=== PATIENT | male | born 1940 | race Caucasian/White ===

== ENCOUNTER 2019-02-22 08:30 | Day surgery (SDC) | payer OTHER ==
[~2019-02-22 08:30] MED LIST: Acetaminophen TAB* 325 MG PO PRN; Buffered Lidocaine 1% SYRIN* 1 ML/SYRINGE INTRADERM ONE
[2019-02-22] MEDS ORDERED: fentaNYL* 50 MCG/ML 2 ML VIAL (100 MCG VIAL) ONE (08:40)
[2019-02-22] MEDS ORDERED: Midazolam* 1 MG/ML 2 ML VIAL (2 MG) ONE (08:40)
[2019-02-22] MEDS ORDERED: Povidone Iodine 5% OPTH* 30 ML BTL ONE (10:57)
[2019-02-22] MEDS ORDERED: Ketorolac 0.5% OPHTH (NF) 0.5 % 5 ML BTL ONE (10:57)
[2019-02-22] MEDS ORDERED: Lidocaine 2% EPI 1:200000 MPF*10-20 ML VIAL ONE (10:57)
[2019-02-22] MEDS ORDERED: Cyclopentolate 1% OPTH.SOL* 2 ML BTL ONE (10:57)
[2019-02-22] MEDS ORDERED: Neomycin/Polymy/Dex OPTH.SUSP* MAXITROL 0.1% 5 ML ONE (10:57)
[2019-02-22] MEDS ORDERED: acetaZOLAMIDE TAB* 250 MG ONE (10:57)
[2019-02-22] MEDS ORDERED: Phenylephrine OPHTH SOL 2.5%* 2 ML ONE (10:57)
[2019-02-22] MEDS ORDERED: Lidocaine 1%* 5 ML VIAL ONE (10:57)
[2019-02-22] MEDS ORDERED: Proparacaine 0.5% OPHTH.SOL* 15 ML BTL ONE (10:57)
[2019-02-22 13:35] VITALS: BP 105/45
--- NOTE | 2019-02-22 13:39 | OP ---
OPERATIVE NOTE: DATE OF OPERATION: 02/22/19. DATE OF : 44 SURGEON: Tyrese Luna M.D. PREOPERATIVE DIAGNOSIS: Cataract, right eye. POSTOPERATIVE DIAGNOSIS: Cataract, right eye. OPERATIVE PROCEDURE: Extracapsular cataract extraction with intraocular lens implant, right eye. PROCEDURE: The patient was brought to the operating room after being given 1/2% Alcaine with epineph rine drops in the preoperative area. The eye was prepped and draped in the usual sterile fashion. S terile drape and eyelid speculum were placed. Again, topical 1/2% Alcaine with epinephrine was given . A paracentesis incision was made at the 9 o'clock position with the No.75 blade. Clear cornea inc ision 2.2 x 2.2-mm was created at the 12 o'clock position starting at the anterior limbus using the 2 .2-mm keratome. The anterior chamber was irrigated with 0.4 mL of 1% non-preservative intracameral l idocaine and filled with DisCoVisc. A capsulorrhexis was completed using the cystotome and the Utrat a forceps. Hydrodissection was performed with balanced salt solution. The lens nucleus was removed w ith the Phacoemulsification handpiece without incident. Cortex was removed with the irrigation-aspir ation handpiece. The capsular bag was re-inflated using DisCoVisc and an SN60WF 18.5 implant was ins erted with the shooter. The irrigation-aspiration handpiece was used to remove all residual DisCoVis c. The eye was refilled with balanced salt solution and the wound checked and found to be watertight . Topical Maxitrol drops were given. [id number]/[facility] #: [id number]
== END 2019-02-22 10:45 | disposition home or self-care (01) ==
LOC: OREAST 08:30
PROVIDERS: ATTEND Specialist
DX: H25.11 Age-related nuclear cataract, right eye (principal); H43.813 Vitreous degeneration, bilateral; I48.91 Unspecified atrial fibrillation; Z79.01 Long term (current) use of anticoagulants; Z86.711 Personal history of pulmonary embolism
CPT/HCPCS: A9270-GY; J2250; J3010; V2632

== ENCOUNTER 2019-03-01 07:13 | Day surgery (SDC) | payer OTHER ==
[2019-03-01] MEDS ORDERED: fentaNYL* 50 MCG/ML 2 ML VIAL (100 MCG VIAL) ONE (08:44)
[2019-03-01] MEDS ORDERED: Midazolam* 1 MG/ML 2 ML VIAL (2 MG) ONE (08:44)
[2019-03-01 09:56] VITALS: BP 106/49
[2019-03-01] MEDS ORDERED: acetaZOLAMIDE TAB* 250 MG ONE (10:12)
[2019-03-01] MEDS ORDERED: Neomycin/Polymy/Dex OPTH.SUSP* MAXITROL 0.1% 5 ML ONE (10:13)
[2019-03-01] MEDS ORDERED: Povidone Iodine 5% OPTH* 30 ML BTL ONE (10:13)
[2019-03-01] MEDS ORDERED: Ketorolac 0.5% OPHTH (NF) 0.5 % 5 ML BTL ONE (10:13)
[2019-03-01] MEDS ORDERED: Cyclopentolate 1% OPTH.SOL* 2 ML BTL ONE (10:13)
[2019-03-01] MEDS ORDERED: Lidocaine 1%* 5 ML VIAL ONE (10:13)
[2019-03-01] MEDS ORDERED: Phenylephrine OPHTH SOL 2.5%* 2 ML ONE (10:13)
[2019-03-01] MEDS ORDERED: Lidocaine 2% EPI 1:200000 MPF*10-20 ML VIAL ONE (10:13)
[2019-03-01] MEDS ORDERED: Proparacaine 0.5% OPHTH.SOL* 15 ML BTL ONE (10:13)
--- NOTE | 2019-03-01 12:39 | OP ---
OPERATIVE NOTE: DATE OF OPERATION: 03/01/19 DATE OF : 44 SURGEON: Tyrese Luna M.D. PREOPERATIVE DIAGNOSIS: Cataract, left eye. POSTOPERATIVE DIAGNOSIS: Cataract, left eye. OPERATIVE PROCEDURE: Extracapsular cataract extraction with intraocular lens implant, left eye. PROCEDURE: The patient was brought to the operating room after being given 1/2% Alcaine with epineph rine drops in the preoperative area. The eye was prepped and draped in the usual sterile fashion. S terile drape and eyelid speculum were placed. Again, topical 1/2% Alcaine with epinephrine was given . A paracentesis incision was made at the 3 o'clock position with the No.75 blade. Clear cornea inc ision 2.2 x 2.2-mm was created at the 6 o'clock position starting at the anterior limbus using the 2. 2-mm keratome. The anterior chamber was irrigated with 0.4 mL of 1% non-preservative intracameral li docaine and filled with DisCoVisc. A capsulorrhexis was completed using the cystotome and the Utrata forceps. Hydrodissection was performed with balanced salt solution. The lens nucleus was removed wi th the Phacoemulsification handpiece without incident. Cortex was removed with the irrigation-aspira tion handpiece. The capsular bag was re-inflated using DisCoVisc and an SN60WF 18.5 implant was inse rted with the shooter. The irrigation-aspiration handpiece was used to remove all residual DisCoVisc . The eye was refilled with balanced salt solution and the wound checked and found to be watertight. Topical Maxitrol drops were given. [id number]/[facility] #: [id number]
== END 2019-03-01 10:07 | disposition home or self-care (01) ==
LOC: OREAST 07:13
PROVIDERS: ATTEND Specialist
DX: H25.12 Age-related nuclear cataract, left eye (principal); H43.813 Vitreous degeneration, bilateral; I48.91 Unspecified atrial fibrillation; Z79.01 Long term (current) use of anticoagulants; Z86.711 Personal history of pulmonary embolism
CPT/HCPCS: A9270-GY; J2250; J3010; V2632

== ENCOUNTER 2019-04-13 18:23 | Emergency (ER) | payer OTHER ==
--- OUTSIDE RECORDS SUMMARY | 2019-04-13 18:29 | XMS REPORT | Continuity of Care Document ---
:1940 External Reference #:[id number] Author Name Nieves Ann Care Team Providers Name Role Phone Loren Bruce MD Primary Care Physician Unavailable Payers Date Identification Numbers Payment Provider Subscriber Policy Number: [id number] [employer] Sintia Leung Group Number: [id number] [address] PayID: [id number] [place] [address] Expires: 2017 Policy Number: [id number] [employer] Sintia Leung PayID: [id number] [address] [place] [address] Problems Active Problems Provider Date Atrial fibrillation Loren Bruce M.D. Onset: 07/29/2016 Pure hypercholesterolemia Maxx Benjamin M.D. Onset: 05/27/2011 Benign localized hyperplasia of prostate Maxx Benjamin M.D. Onset: 2010 Disorder of eye Sven Parisi M.D. Onset: 05/10/2013 Family History Date Family Member(s) Observation Comments General Cancer : (age 66 Father due to Heart alcohol problem Years) Disease Mother due to Natural () - age Causes 83 Siblings 4 First Brother Heart Disease OR in his 70s First Brother due to Unknown () - in his 80s Causes Second Brother Alive And Well : (age 77 First Sister due to Breast Years) Cancer Onset: (age 70 First Sister OR Years) Second Sister due to Cancer () Social History Type Date Description Comments Sex Unknown Marital Status 2 daughters Lives With Occupation [employer]- [employer] Cigarette Use Quit - Age 29 ETOH Use Consumes 1 beer per day Tobacco Use Start: Unknown End: Patient is a former smoker Unknown Recreational Drug Use Denies Drug Use Smoking Status Reviewed: 04/10/19 Patient is a former smoker Exercise Type/Frequency Exercises regularly Allergies, Adverse Reactions, Alerts Description No Known Drug Allergies Medications Active Medications SIG Qnty Indications Ordering Provider Date Metoprolol Succinate 1 by mouth 180tabs I48.0 Ezekiel Ramon, 05/03/2017 ER every day DO FACC 50mg Tablets ER 24HR Xarelto 1 by mouth 180tabs I48.0 Ezekiel Ramon, 05/03/2017 20mg Tablets every day DO FACC History Medications Voltaren apply to affected 200gm Dylan Corey, 10/13/2018 - 1% Gel area up to three M.D. 02/17/2019 times daily Tramadol HCL 1-2 tablets every 60tabs M19.171 Loren 05/19/2018 - 50mg 6 hours as needed Sirisha Bruce 02/17/2019 Tablets Sildenafil Citrate 1- 2 tabs one hour 20tabs Loren 05/19/2018 - prior to Sirisha Bruce 02/17/2019 50mg Tablets intercourse Eliquis 1 by mouth twice a 360tabs I48.0 Ezekiel Ramon, 07/31/2016 - 5mg Tablets day DO [facility] 05/03/2017 Toprol XL 1 by mouth twice 360tabs I48.0 Ezekiel Ramon, 07/31/2016 - 25mg daily DO [facility] 05/03/2017 Tablets ER 24HR Aspirin 1 by mouth every R55 Loren 07/28/2016 - 81mg Tablets day Sirisha Bruce 07/31/2016 Cialis 1/2-1 tab PO q 3 30tabs Loren 05/06/2016 - 10mg Tablets days as needed(pt Sirisha Bruce 08/24/2016 is no longer using at all, Pat request that it be taking off) Viagra 1 tablet once 10tabs Loren 04/27/2016 - 50mg Tablets daily as needed Sirisha Bruce 05/06/2016 Triamcinolone Apply To Affected 80units 692.6 Shin Contreras NP 04/04/2015 - Acetonide Area(S) Two Times 12/03/2015 0.1% Cream A Day Tamsulosin HCL 1 po qd 30caps 600.20 Maxx Chapa 11/07/2013 - 0.4mg Sirisha Benjamin 11/20/2014 Capsules Fexofenadine HCL once daily 15tabs 379.90 Sven 05/10/2013 - Sirisha Parisi 11/07/2013 180mg Tablets Viagra 1 po qd as needed 10tabs Maxx Chapa 02/16/2013 - 50mg Tablets Sirisha Benjamin 11/20/2014 [place] 1 PO qd(pt takes Maxx Chapa 02/28/2009 - 160mg sporadically) Sirisha Benjamin 09/21/2017 Capsules Multivitamins 1 PO qd 90tabs Maxx Chapa 02/13/2008 - Sirisha Benjamin 12/08/2011 Tablets Doxycycline Hyclate bid 30tabs Unknown - 12/08/2011 20mg Tablets Doxycycline Hyclate 1 by mouth twice a Unknown - day for 10 days 07/28/2016 20mg Tablets Vitamin B12 occasional Unknown - 09/21/2017 Meloxicam 1 by mouth every M19.171 Unknown - 15mg day 05/19/2018 Tablets Immunizations CPT Code Status Date Vaccine Lot # [id number] Given 01/07/2016 Zoster (Zostavax) [id number] Given 11/20/2014 Tdap - Tetanus/Diptheria/Acellular Pertussis [id number] Given 11/20/2014 Pneumococcal Conjugate Vaccine 13 Valent For [id number] Intramuscular Use [id number] Given 11/07/2013 Fluvirin Im [id number] And Older [id number] [id number] Given 02/13/2008 Pneumonia Vaccine [id number] Given 02/13/2008 Pneumonia Vaccine [id number] Given 05/08/2004 Td (History By Patient) Vital Signs Date Vital Result Comment 04/10/2019 2:30pm Height 67.5 inches 5'7.50" Weight 164.00 lb with boots Heart Rate 80 /min BP Systolic Sitting 110 mmHg lue reg cuff BP Diastolic Sitting 60 mmHg lue reg cuff BP Systolic Standing 110 mmHg lue reg cuff BP Diastolic Standing 64 mmHg lue reg cuff Respiratory Rate 14 /min BMI (Body Mass Index) 25.3 kg/m2 Ejection Fraction 55% echo. 09/18/16 04/10/2019 2:26pm Height 67.5 inches 5'7.50" Weight 165.00 lb with boots BMI (Body Mass Index) 25.5 kg/m2 02/17/2019 1:51pm Height 67.5 inches 5'7.50" Weight 164.00 lb Heart Rate 90 /min BP Systolic Sitting 118 mmHg BP Diastolic Sitting 66 mmHg O2 % BldC Oximetry 96 % BMI (Body Mass Index) 25.3 kg/m2 09/27/2018 8:52am Height 67.5 inches 5'7.50" Heart Rate 68 /min BP Systolic 132 mmHg BP Diastolic 68 mmHg Body Temperature 97.5 F Pain Level 6 05/19/2018 9:19am Height 67.5 inches 5'7.50" Weight 166.00 lb Heart Rate 66 /min BP Systolic Sitting 119 mmHg BP Diastolic Sitting 67 mmHg O2 % BldC Oximetry 96 % BMI (Body Mass Index) 25.6 kg/m2 03/09/2018 2:35pm Height 67.5 inches 5'7.50" Weight 169.00 lb Heart Rate 68 /min BP Systolic Sitting 128 mmHg Rue reg cuff BP Diastolic Sitting 74 mmHg Rue reg cuff BP Systolic Standing 114 mmHg Rue BP Diastolic Standing 70 mmHg Rue Respiratory Rate 16 /min BMI (Body Mass Index) 26.1 kg/m2 09/21/2017 8:54am Height 67.5 inches 5'7.50" Weight 160.00 lb Heart Rate 77 /min BP Systolic Sitting 123 mmHg BP Diastolic Sitting 72 mmHg Pain Level 5 BMI (Body Mass Index) 24.7 kg/m2 05/18/2017 9:20am Height 67.5 inches 5'7.50" Weight 164.00 lb Heart Rate 70 /min BP Systolic Sitting 130 mmHg BP Diastolic Sitting 78 mmHg O2 % BldC Oximetry 98 % BMI (Body Mass Index) 25.3 kg/m2 05/03/2017 2:28pm Height 67.5 inches 5'7.50" Weight 165.00 lb with shoes Heart Rate 86 /min BP Systolic Sitting 126 mmHg Lue reg cuff BP Diastolic Sitting 70 mmHg Lue reg cuff BP Systolic Standing 120 mmHg Lue reg cuff BP Diastolic Standing 70 mmHg Lue reg cuff Respiratory Rate 17 /min BMI (Body Mass Index) 25.5 kg/m2 Ejection Fraction 40% date 08/21/2016 ECHO 10/15/2016 8:25am Height 67.5 inches 5'7.50" Weight 166.00 lb w/ shoes Heart Rate 72 /min reg BP Systolic Sitting 126 mmHg Lue, reg cuff BP Diastolic Sitting 70 mmHg Lue, reg cuff BP Systolic Standing 120 mmHg Lue BP Diastolic Standing 70 mmHg Lue Respiratory Rate 16 /min BMI (Body Mass Index) 25.6 kg/m2 Ejection Fraction 40% as of 08/21/16 Ramin 08/27/2016 9:30am Height 67.5 inches 5'7.50" Weight 161.00 lb w/ shoes Heart Rate 62 /min reg BP Systolic Sitting 116 mmHg Rue, reg cuff BP Diastolic Sitting 70 mmHg Rue, reg cuff BP Systolic Standing 110 mmHg Rue BP Diastolic Standing 66 mmHg Rue Respiratory Rate 16 /min BMI (Body Mass Index) 24.8 kg/m2 08/24/2016 3:35pm Height 67.5 inches 5'7.50" Weight 161.00 lb no shoes Heart Rate 74 /min irreg BP Systolic Sitting 110 mmHg Rue reg cuff BP Diastolic Sitting 72 mmHg Rue reg cuff BP Systolic Standing 110 mmHg Rue reg cuff BP Diastolic Standing 72 mmHg Rue reg cuff Respiratory Rate 16 /min BMI (Body Mass Index) 24.8 kg/m2 Ejection Fraction No EF Giv 08/03/2016 08/13/2016 11:05am Height 67.5 inches 5'7.50" Weight 164.00 lb Pain Level 2 BMI (Body Mass Index) 25.3 kg/m2 08/04/2016 12:32pm Height 67.5 inches 5'7.50" Weight 164.50 lb w/ shoes Heart Rate 96 /min BP Systolic Sitting 126 mmHg Lue, reg cuff BP Diastolic Sitting 86 mmHg Lue, reg cuff BP Systolic Standing 120 mmHg Lue BP Diastolic Standing 86 mmHg Lue Respiratory Rate 16 /min BMI (Body Mass Index) 25.4 kg/m2 07/31/2016 12:26pm Height 67.5 inches 5'7.50" Weight 164.50 lb Heart Rate 86 /min irreg BP Systolic 120 mmHg Rue, reg cuff BP Diastolic 70 mmHg Rue, reg cuff BP Systolic Sitting 124 mmHg Lue, reg cuff BP Diastolic Sitting 76 mmHg Lue, reg cuff BP Systolic Standing 126 mmHg Lue BP Diastolic Standing 80 mmHg Lue Respiratory Rate 16 /min BMI (Body Mass Index) 25.4 kg/m2 07/28/2016 4:37pm Height 67.5 inches 5'7.50" Weight 166.00 lb Heart Rate 71 /min BP Systolic 118 mmHg BP Diastolic 71 mmHg Body Temperature 98.8 F O2 % BldC Oximetry 96 % BMI (Body Mass Index) 25.6 kg/m2 07/28/2016 4:36pm Height 67.5 inches 5'7.50" 01/07/2016 3:01pm Height 67.5 inches 5'7.50" Weight 164.00 lb Heart Rate 74 /min BP Systolic Sitting 124 mmHg BP Diastolic Sitting 80 mmHg Respiratory Rate 15 /min Body Temperature 98.0 F O2 % BldC Oximetry 97 % BMI (Body Mass Index) 25.3 kg/m2 12/03/2015 2:34pm Height 67.5 inches 5'7.50" Weight 162.00 lb Heart Rate 80 /min BP Systolic Sitting 126 mmHg BP Diastolic Sitting 84 mmHg Respiratory Rate 15 /min Body Temperature 98.0 F O2 % BldC Oximetry 98 % BMI (Body Mass Index) 25.0 kg/m2 04/04/2015 11:03am Height 68 inches 5'8" Weight 159.25 lb Heart Rate 107 /min BP Systolic Sitting 110 mmHg BP Diastolic Sitting 64 mmHg O2 % BldC Oximetry 97 % BMI (Body Mass Index) 24.2 kg/m2 11/20/2014 3:14pm Height 68 inches 5'8" Weight 165.00 lb Heart Rate 78 /min BP Systolic Sitting 100 mmHg BP Diastolic Sitting 56 mmHg BMI (Body Mass Index) 25.1 kg/m2 11/07/2013 3:22pm Weight 163.00 lb Heart Rate 74 /min BP Systolic Sitting 128 mmHg BP Diastolic Sitting 72 mmHg 05/10/2013 11:33am Height 68 inches 5'8" Weight 152.00 lb Heart Rate 64 /min BP Systolic Sitting 118 mmHg BP Diastolic Sitting 62 mmHg BMI (Body Mass Index) 23.1 kg/m2 05/30/2012 2:06pm Height 68.25 inches 5'8.25" Weight 149.00 lb Heart Rate 88 /min BP Systolic Sitting 112 mmHg BP Diastolic Sitting 70 mmHg BMI (Body Mass Index) 22.5 kg/m2 12/08/2011 10:31am Height 68.5 inches 5'8.50" Weight 159.50 lb Heart Rate 84 /min BP Systolic Sitting 134 mmHg BP Diastolic Sitting 78 mmHg BMI (Body Mass Index) 23.9 kg/m2 05/27/2011 10:25am Height 69 inches 5'9" Weight 158.00 lb Heart Rate 76 /min BP Systolic Sitting 126 mmHg BP Diastolic Sitting 68 mmHg BMI (Body Mass Index) 23.3 kg/m2 05/26/2010 10:53am Weight 148.00 lb Heart Rate 60 /min BP Systolic Sitting 160 mmHg BP Diastolic Sitting 80 mmHg 10/15/2009 3:44pm Heart Rate 80 /min BP Systolic Sitting 128 mmHg BP Diastolic Sitting 80 mmHg 02/28/2009 1:34pm Height 68.5 inches 5'8.50" Weight 156.00 lb Heart Rate 80 /min BP Systolic Sitting 110 mmHg BP Diastolic Sitting 70 mmHg Respiratory Rate 20 /min BMI (Body Mass Index) 23.4 kg/m2 02/13/2008 9:38am Height 68.5 inches 5'8.50" Weight 159.00 lb Heart Rate 76 /min BP Systolic Sitting 110 mmHg BP Diastolic Sitting 68 mmHg BMI (Body Mass Index) 23.8 kg/m2 Results Test Date Facility Test Result H/L Range Note Laboratory test 01/11/2019 [facility] Blood Urea 15 mg/dL N 6- [address] [place] [address] [phone] Creatinine 01/11/2019 [facility] Creatinine 0.99 mg/dL N 0.67- 1.[address] [place] [address] [phone] Egfr Non- 73.5 >60 Egfr 88.9 >60 1 Laboratory test 01/11/2019 [facility] PSA Diagnostic 1.083 N 0 -4.0 [address] ng/[place] [address] [phone] Lipid Profile 05/13/2018 [facility] Triglycerides 97 mg/dL 3, 4 (Trig/Chol/HDL) [address] [place] [address] [phone] Cholesterol 221 mg/dL 5 HDL Cholesterol 45.5 mg/dL 6 LDL Cholesterol 156 mg/dL 7 Comp Metabolic Panel 05/13/2018 [facility] Sodium 140 mmol/L N 135-[address] [place] [address] [phone] Potassium 4.5 mmol/L N 3.5-5.0 Chloride 105 mmol/L N 101-111 Co2 Carbon Dioxide 28 mmol/L N 22-32 Anion Gap 7 mmol/L N 2-11 Glucose 102 mg/dL High 70-100 Blood Urea Nitrogen 19 mg/dL N 6-24 Creatinine 1.01 mg/dL N 0.67-1.17 BUN/Creatinine Ratio 18.8 N 8-20 Calcium 9.4 mg/dL N 8.6-10.3 Total Protein 7.0 g/dL N 6.4-8.9 Albumin 4.1 g/dL N 3.2-5.2 Globulin 2.9 g/dL N 2-4 Albumin/Globulin Ratio 1.4 N 1-3 Total Bilirubin 1.20 mg/dL High 0.2-1.0 Alkaline Phosphatase 52 U/L N 34-104 Alt 11 U/L N 7-52 Ast 20 U/L N 13-39 Egfr Non- 72.0 >60 Egfr 87.1 >60 8 CBC Auto Diff 05/13/2018 [facility] White Blood 4.8 10^3/uL N 3.5-10.[address] [place] [address] [phone] Red Blood Count 4.09 10^6/uL N 4.00-5.40 Hemoglobin 15.8 g/dL N 14.0-18.0 Hematocrit 46 % N 42-52 Mean Corpuscular Volume 112 fL High 80-94 Mean Corpuscular Hemoglobin 39 pg High 27-31 Mean Corpuscular HGB Conc 34 g/dL N 31-36 Red Cell Distribution Width 13 % N 10.5-15 Platelet Count 194 10^3/uL N 150-450 Mean Platelet Volume 6.5 um3 Low 7.4-10.4 Abs Neutrophils 2.4 10^3/uL N 1.5-7.7 Abs Lymphocytes 1.5 10^3/uL N 1.0-4.8 Abs Monocytes 0.7 10^3/uL N 0-0.8 Abs Eosinophils 0.2 10^3/uL N 0-0.6 Abs Basophils 0 10^3/uL N 0-0.2 Abs Nucleated RBC 0 10^3/uL Granulocyte % 50.9 % N 38-83 Lymphocyte % 30.8 % N 25-47 Monocyte % 13.7 % High 0-7 Eosinophil % 3.7 % N 0-6 Basophil % 0.9 % N 0-2 Nucleated Red Blood Cells % 0 Cell Morphology 05/13/2018 [facility] Macrocytosis 2+ [address] [place] [address] [phone] CBC Auto Diff 05/07/2017 [facility] White Blood Count 5.6 N 3.5-[address] 10^3/uL .8 [place] [address] [phone] Red Blood Count 4.05 10^6/uL N 4.0-5.4 Hemoglobin 15.6 g/dL N 14.0-18.0 Hematocrit 46 % N 42-52 Mean Corpuscular Volume 113 fL High 80-94 Mean Corpuscular Hemoglobin 38 pg High 27-31 Mean Corpuscular HGB Conc 34 g/dL N 31-36 Red Cell Distribution Width 13 % N 10.5-15 Platelet Count 179 10^3/uL N 150-450 Mean Platelet Volume 7 um3 Low 7.4-10.4 Abs Neutrophils 2.7 10^3/uL N 1.5-7.7 Abs Lymphocytes 2.0 10^3/uL N 1.0-4.8 Abs Monocytes 0.6 10^3/uL N 0-0.8 Abs Eosinophils 0.2 10^3/uL N 0-0.6 Abs Basophils 0.1 10^3/uL N 0-0.2 Abs Nucleated RBC 0 10^3/uL N Granulocyte % 48.5 % N 38-83 Lymphocyte % 35.7 % N 25-47 Monocyte % 11.4 % High 1-9 Eosinophil % 3.4 % N 0-6 Basophil % 1.0 % N 0-2 Nucleated Red Blood Cells % 0 N Laboratory test 05/07/2017 [facility] Vitamin B12 335 pg/mL N 180-914 [address] [place] [address] [phone] Lipid Profile 05/07/2017 [facility] Triglycerides 100 mg/dL N 11 (Trig/Chol/HDL) [address] [place] [address] [phone] Cholesterol 210 mg/dL N 12 HDL Cholesterol 40.1 mg/dL N 13 LDL Cholesterol 150 mg/dL N 14 Comp Metabolic Panel 05/07/2017 [facility] Sodium 137 mmol/L N 133-[address] [place] [address] [phone] Potassium 4.0 mmol/L N 3.5-5.0 Chloride 104 mmol/L N 101-111 Co2 Carbon Dioxide 29 mmol/L N 22-32 Anion Gap 4 mmol/L N 2-11 Glucose 99 mg/dL N 70-100 Blood Urea Nitrogen 17 mg/dL N 6-24 Creatinine 0.98 mg/dL N 0.67-1.17 BUN/Creatinine Ratio 17.3 N 8-20 Calcium 9.0 mg/dL N 8.6-10.3 Total Protein 6.8 g/dL N 6.4-8.9 Albumin 3.8 g/dL N 3.2-5.2 Globulin 3.0 g/dL N 2-4 Albumin/Globulin Ratio 1.3 N 1-3 Total Bilirubin 0.70 mg/dL N 0.2-1.0 Alkaline Phosphatase 54 U/L N 34-104 Alt 13 U/L N 7-52 Ast 19 U/L N 13-39 Egfr Non- 74.8 N >60 Egfr 96.2 N >60 15 CBC Auto Diff 07/29/2016 [facility] White Blood 6.2 10^3/uL N 3.5-10.[address] [place] [address] [phone] Red Blood Count 4.17 10^6/uL N 4.0-5.4 Hemoglobin 15.7 g/dL N 14.0-18.0 Hematocrit 46 % N 42-52 Mean Corpuscular Volume 111 fL High 80-94 Mean Corpuscular Hemoglobin 38 pg High 27-31 Mean Corpuscular HGB Conc 34 g/dL N 31-36 Red Cell Distribution Width 13 % N 10.5-15 Platelet Count 214 10^3/uL N 150-450 Mean Platelet Volume 7 um3 Low 7.4-10.4 Abs Neutrophils 3.1 10^3/uL N 1.5-7.7 Abs Lymphocytes 2.1 10^3/uL N 1.0-4.8 Abs Monocytes 0.7 10^3/uL N 0-0.8 Abs Eosinophils 0.1 10^3/uL N 0-0.6 Abs Basophils 0.1 10^3/uL N 0-0.2 Abs Nucleated RBC 0 10^3/uL N Granulocyte % 50.7 % N 38-83 Lymphocyte % 33.7 % N 25-47 Monocyte % 12.0 % High 1-9 Eosinophil % 2.0 % N 0-6 Basophil % 1.6 % N 0-2 Nucleated Red Blood Cells % 0.1 N Comp Metabolic Panel 07/29/2016 [facility] Sodium 139 mmol/L N 133-[address] [place] [address] [phone] Potassium 4.4 mmol/L N 3.5-5.0 Chloride 106 mmol/L N 101-111 Co2 Carbon Dioxide 27 mmol/L N 22-32 Anion Gap 6 mmol/L N 2-11 Glucose 90 mg/dL N 70-100 Blood Urea Nitrogen 17 mg/dL N 6-24 Creatinine 1.10 mg/dL N 0.67-1.17 BUN/Creatinine Ratio 15.5 N 8-20 Calcium 9.6 mg/dL N 8.6-10.3 Total Protein 7.1 g/dL N 6.4-8.9 Albumin 4.2 g/dL N 3.2-5.2 Globulin 2.9 g/dL N 2-4 Albumin/Globulin Ratio 1.4 N 1-3 Total Bilirubin 0.60 mg/dL N 0.2-1.0 Alkaline Phosphatase 57 U/L N 34-104 Alt 18 U/L N 7-52 Ast 18 U/L N 13-39 Egfr Non- 65.6 N >60 Egfr 84.4 N >60 16 Laboratory test 07/29/2016 [facility] TSH (Thyroid 1.25 N 0.34 -5.[address] Stim Horm) mcIU/[place] [address] [phone] Inr/Protime 07/29/2016 [facility] Inr 0.98 N 0.89-1.[address] [place] [address] [phone] Laboratory test 07/29/2016 [facility] Vitamin B12 209 pg/mL N 180-914 17 finding [address] [place] [address] [phone] Protein 07/29/2016 [facility] Total 7.4 g/dL N 6.3 - 7.9 Electrophoresis [address] [facility] Protein(Pep) [place] [address] [phone] Albumin 3.6 g/dL N 3.4-4.7 Alpha-1 Globulin 0.2 g/dL N 0.1-0.3 Alpha-2 Globulin 0.9 g/dL N 0.6-1.0 Beta Globulin 1.0 g/dL N 0.7-1.2 Gamma Globulin 1.7 g/dL Abnormal 0.6-1.6 Albumin/Globulin Ratio 0.97 N Impression See Comment N 18 Varicella 12/03/2015 [facility] Varicella-Zoster IgG Positive N 19 Zoster Igg AB [address] [facility] [place] [address] [phone] Varicella IgG Antibody Index 1.6 N 20 Lipid Profile 11/26/2015 [facility] Triglycerides 65 mg/dL N 21 (Trig/Chol/HDL) [address] [place] [address] [phone] Cholesterol 184 mg/dL N 22 HDL Cholesterol 44.1 mg/dL N 23 LDL Cholesterol 127 mg/dL N 24 Basic Metabolic Panel 11/26/2015 [facility] Sodium 140 mmol/L N 133-145 [address] [place] [address] [phone] Potassium 4.2 mmol/L N 3.5-5.0 Chloride 103 mmol/L N 101-111 Co2 Carbon Dioxide 30 mmol/L N 22-32 Anion Gap 7 mmol/L N 2-11 Glucose 101 mg/dL High 70-100 Blood Urea Nitrogen 14 mg/dL N 6-24 Creatinine 1.00 mg/dL N 0.67-1.17 BUN/Creatinine Ratio 14.0 N 8-20 Calcium 9.4 mg/dL N 8.6-10.3 Egfr Non- 73.5 N >60 Egfr 94.5 N >60 25 Basic Metabolic Panel 11/13/2014 [facility] Sodium 138 mmol/L N 133-[address] [place] [address] [phone] Potassium 4.1 mmol/L N 3.5-5.0 Chloride 103 mmol/L N 101-111 Co2 Carbon Dioxide 28 mmol/L N 22-32 Anion Gap 7 mmol/L N 2-11 Glucose 75 mg/dL N 70-100 Blood Urea Nitrogen 15 mg/dL N 6-24 Creatinine 0.99 mg/dL N 0.67-1.17 BUN/Creatinine Ratio 15.2 N 8-20 Calcium 9.2 mg/dL N 8.6-10.3 Egfr Non- 74.5 N >60 Egfr 95.8 N >60 27 Lipid Profile 11/13/2014 [facility] Triglycerides 79 mg/dL N 28 (Trig/Chol/HDL) [address] [place] [address] [phone] Cholesterol 199 mg/dL N 29 HDL Cholesterol 41.4 mg/dL N 30 LDL Cholesterol 142 mg/dL N 31 Surgical 03/12/2014 [facility] S RUN DATE: [address] 03/13/ <[place] [address] NOTE> [phone] Laboratory test 11/23/2013 [facility] PSA Screening 0.872 ng/mL 0-4.[address] [place] [address] [phone] Lipid Profile 11/23/2013 [facility] Triglycerides 65 mg/dL 34 (Trig/Chol/HDL) [place] [address] [phone] Cholesterol 176 mg/dL 35 HDL Cholesterol 40.1 mg/dL 36 LDL Cholesterol 123 mg/dL 37 Basic Metabolic Panel 11/23/2013 [facility] Sodium 139 mmol/L 133-[address] [place] [address] [phone] Potassium 4.0 mmol/L 3.7-5.6 Chloride 104 mmol/L 101-111 Co2 Carbon Dioxide 31 mmol/L 22-32 Anion Gap 4 mmol/L 2-11 Glucose 88 mg/dL 70-100 Blood Urea Nitrogen 16 mg/dL 6-24 Creatinine 0.96 mg/dL 0.67-1.17 BUN/Creatinine Ratio 16.7 8-20 Calcium 9.3 mg/dL 8.6-10.3 Egfr Non- 77.4 >60 Egfr 99.6 >60 38 Lipid Profile 05/19/2012 [facility] Triglyceride 53 mg/dL 40- 200 (Trig/Chol/HDL) [address] [place] [address] [phone] Cholesterol 184 mg/dL Less Than 200 39 High Density Lipoprotein 43 mg/dL 40-60 40 Cholesterol/HDL Ratio 4.28 AVERAGE 1-4.97 Low Density Lipoprotein 130 mg/dL High Less Than 100 41 Laboratory test 05/19/2012 [facility] PSA 0.80 NG/ML 0-4 [address] [place] [address] [phone] Comp Metabolic Panel 05/19/2012 [facility] Sodium 137 mmol/L 135-[address] [place] [address] [phone] Potassium 4.1 mmol/L 3.5-5.0 Chloride 106 mmol/L 101-111 Co2 (Carbon Dioxide) 28.0 mmol/L 22-32 Anion Gap 3.0 mmol/L 2-11 43 Glucose 87 mg/dL 70-100 BUN 17 mg/dL 6-24 Creatinine 1.0 mg/dL 0.50-1.40 One Over Creatinine 1.00 BUN/Creatinine Ratio 17.0 8-20 Calcium 9.0 mg/dL 8.1-9.9 Total Protein 6.8 GM/DL 6.2-8.1 Albumin 3.8 GM/DL 3.2-5.2 Globulin 3.0 GM/DL 2-4 Albumin/Globulin Ratio 1.3 1-3 Bilirubin Total 1.3 mg/dL 0.4-1.5 44 Alkaline Phosphatase 67 U/L 39-117 Alt (SGPT) 12 U/L Low 17-63 Ast (Sgot) 22 U/L 12-42 eGFR Non- 74.1 > 60 eGFR 95.3 > 60 45 Laboratory test 05/19/2012 [facility] CPK (Creatine 109 U/L 0 -[address] Kinase) [place] [address] [phone] Testosterone Free 05/27/2011 [facility] Free Testosterone 13.9 9-30 46 & Total [address] ng/[place] [address] [phone] Total Testosterone 816 ng/dL 240-950 47 Vitamin B12 And 05/27/2011 [facility] Vitamin B12 183 pg/mL 180-914 Folate Serum [address] [place] [address] [phone] Folic Acid 11.5 NG/ML 2-16 [facility] 05/22/2011 [facility] TSH 1.08 MIU/ML 0.34- 5.60 48 Panel [address] [place] [address] [phone] Comp Metabolic 05/22/2011 [facility] Sodium 139 mmol/L 135- 145 Panel [address] [place] [address] [phone] Potassium 4.5 mmol/L 3.5-5.0 Chloride 103 mmol/L 101-111 Co2 (Carbon Dioxide) 31.0 mmol/L 22-32 Anion Gap 5.0 mmol/L 2-11 49 Glucose 81 mg/dL 70-100 BUN 14 mg/dL 6-24 Creatinine 1.00 mg/dL 0.50-1.40 One Over Creatinine 1.00 BUN/Creatinine Ratio 14.0 8-20 Calcium 9.6 mg/dL 8.1-9.9 Total Protein 7.6 GM/DL 6.2-8.1 Albumin 4.0 GM/DL 3.2-5.2 Globulin 3.6 GM/DL 2-4 Albumin/Globulin Ratio 1.1 1-3 Bilirubin Total 1.1 mg/dL 0.4-1.5 50 Alkaline Phosphatase 75 U/L 39-117 Alt (SGPT) 16 U/L Low 17-63 Ast (Sgot) 22 U/L 12-42 eGFR Non- 74.3 > 60 eGFR 95.6 > 60 51 Lipid Profile 05/22/2011 [facility] Triglyceride 88 mg/dL 40- 200 (Trig/Chol/HDL) [address] [place] [address] [phone] Cholesterol 208 mg/dL High Less Than 200 52 High Density Lipoprotein 44 mg/dL 40-60 53 Cholesterol/HDL Ratio 4.73 AVERAGE 1-4.97 Low Density Lipoprotein 146 mg/dL High Less Than 100 54 CBC Auto Diff 05/22/2011 [facility] White Blood 5.8 CUMM 4.8- 10.[address] [place] [address] [phone] Red Cell Count 4.26 CUMM Low 4.6-6.2 Hemoglobin 16.7 g/dL 14.0-18.0 Hematocrit 48 % 42-52 Mean Corpuscular Volume 112 um3 High 80-94 55 Mean Corpuscular Hemoglob 39 pg High 27-31 Mean Corpuscular HGB Cone 35 g/dL 32-36 Redcell Distribution WDTH 14 % 10.5-15 Platelet Count 242 CUMM 150-450 Mean Platelet Volume 6.9 um3 Low 7.4-10.4 Gran % 49.2 % 38-83 Lymph % 35.5 % 25-47 Mononuclear % 12.2 % High 1-9 Eosinophil % 2.5 % 0-6 Basophil % 0.6 % 0-2 Abs Lymphs 2.1 1.0-4.8 Abs Mononuclear 0.7 0-0.8 Absolute Neutrophil Count 2.9 1.5-7.7 Abs Eosinophils 0.1 0-0.6 Abs Basophils 0 0-0.2 56 Laboratory test 05/22/2011 [facility] PSA Screening 2.02 NG/ML 0-4 [address] [place] [address] [phone] DR [facility] 05/19/2010 [facility] TSH 1.00 MIU/ML 0.34- 5.[address] [place] [address] [phone] Comp Metabolic 05/19/2010 [facility] Sodium 137 mmol/L 135- 145 Panel [address] [place] [address] [phone] Potassium 4.2 mmol/L 3.5-5.0 Chloride 104 mmol/L 101-111 Co2 (Carbon Dioxide) 29.0 mmol/L 22-32 Anion Gap 4.0 mmol/L 2-11 58 Glucose 91 mg/dL 70-100 59 BUN 14 mg/dL 6-24 Creatinine 0.90 mg/dL 0.50-1.40 One Over Creatinine 1.10 BUN/Creatinine Ratio 15.6 8-20 Calcium 9.1 mg/dL 8.1-9.9 60 Total Protein 6.4 GM/DL 6.2-8.1 Albumin 3.9 GM/DL 3.2-5.2 Globulin 2.5 GM/DL 2-4 Albumin/Globulin Ratio 1.6 1-3 Bilirubin Total 1.1 mg/dL 0.4-1.5 61 Alkaline Phosphatase 60 U/L 39-117 Alt (SGPT) 14 U/L Low 17-63 Ast (Sgot) 22 U/L 12-42 eGFR Non- 89.5 > 60 eGFR 108.2 > 60 62 Lipid Profile 05/19/2010 [facility] Triglyceride 39 mg/dL Low 40-200 (Trig/Chol/HDL) [address] [place] [address] [phone] Cholesterol 178 mg/dL Less Than 200 63 High Density Lipoprotein 40 mg/dL 40-60 64 Cholesterol/HDL Ratio 4.45 AVERAGE 1-4.97 Low Density Lipoprotein 130 mg/dL High Less Than 100 65 CBC With 05/19/2010 [facility] White Blood 4.1 CUMM Low 4.8- 10.8 Electronic Diff [address] [place] [address] [phone] Red Cell Count 3.94 CUMM Low 4.6-6.2 Hemoglobin 15.4 g/dL 14.0-18.0 Hematocrit 44 % 42-52 Mean Corpuscular Volume 112 um3 High 80-94 66 Mean Corpuscular Hemoglob 39 pg High 27-31 Mean Corpuscular HGB Cone 35 g/dL 32-36 Redcell Distribution WDTH 14 % 10.5-15 Platelet Count 192 CUMM 150-450 Mean Platelet Volume 6.3 um3 Low 7.4-10.4 Gran % 45.7 % 38-83 Lymph % 37.0 % 25-47 Mononuclear % 13.5 % High 1-9 Eosinophil % 3.1 % 0-6 Basophil % 0.7 % 0-2 Abs Lymphs 1.5 1.0-4.8 Abs Mononuclear 0.6 0-0.8 Absolute Neutrophil Count 1.9 1.5-7.7 Abs Eosinophils 0.1 0-0.6 Abs Basophils 0 0-0.2 67 Laboratory test 02/28/2009 [facility] C Reactive 0.6 mg/dL High Less Than finding [address] Protein 0.5 [place] [address] [phone] CBC With 02/21/2009 [facility] White Blood 5.0 CUMM 4.8-10.8 Electronic Diff [address] [place] [address] [phone] Red Cell Count 3.98 CUMM Low 4.6-6.2 Hemoglobin 15.0 g/dL 14.0-18.0 Hematocrit 44 % 42-52 Mean Corpuscular Volume 111 um3 High 80-94 68 Mean Corpuscular Hemoglob 38 pg High 27-31 Mean Corpuscular HGB Cone 34 g/dL 32-36 Redcell Distribution WDTH 13 % 10.5-15 Platelet Count 200 CUMM 150-450 Mean Platelet Volume 6.7 um3 Low 7.4-10.4 Gran % 48.4 % 38-83 Lymph % 36.9 % 25-47 Mononuclear % 10.8 % High 1-9 Eosinophil % 3.1 % 0-6 Basophil % 0.8 % 0-2 Abs Lymphs 1.8 1.0-4.8 Abs Mononuclear 0.5 0-0.8 Absolute Neutrophil Count 2.4 1.5-7.7 Abs Eosinophils 0.2 0-0.6 Abs Basophils 0 0-0.2 69 Comp Metabolic Panel 02/21/2009 [facility] Sodium 140 mmol/L 135-[address] [place] [address] [phone] Potassium 4.6 mmol/L 3.5-5.0 Chloride 105 mmol/L 101-111 Co2 (Carbon Dioxide) 31.0 mmol/L 22-32 Anion Gap 4.0 mmol/L 2-11 70 Glucose 90 mg/dL 70-100 71 BUN 15 mg/dL 6-24 Creatinine 1.00 mg/dL 0.50-1.40 One Over Creatinine 1.00 BUN/Creatinine Ratio 15.0 8-20 Calcium 9.2 mg/dL 8.1-9.9 72 Total Protein 6.7 GM/DL 6.2-8.1 Albumin 3.7 GM/DL 3.2-5.2 Globulin 3.0 GM/DL 2-4 Albumin/Globulin Ratio 1.2 1-3 Bilirubin Total 1.3 mg/dL 0.4-1.5 73 Alkaline Phosphatase 66 U/L 39-117 Alt (SGPT) 16 U/L Low 17-63 Ast (Sgot) 26 U/L 12-42 Lipid Profile 02/21/2009 [facility] Triglyceride 55 mg/dL 40- 200 (Trig/Chol/HDL) [address] [place] [address] [phone] Cholesterol 192 mg/dL Less Than 200 74 High Density Lipoprotein 47 mg/dL 40-60 75 Cholesterol/HDL Ratio 4.09 AVERAGE 1-4.97 Low Density Lipoprotein 134 mg/dL High Less Than 100 76 Laboratory test 02/21/2009 [facility] TSH 1.40 MIU/ML 0.34- 5.[address] [place] [address] [phone] PSA Screening 0.72 NG/ML 0-4 77 CBC With 02/06/2008 [facility] White Blood 4.2 CUMM Low 4.8- 10.8 Electronic Diff [address] [place] [address] [phone] Abs Basophils 0 0-0.2 Abs Eosinophils 0.1 0-0.6 Absolute Neutrophil Count 2.0 1.5-7.7 Abs Lymphs 1.6 1.0-4.8 Abs Mononuclear 0.4 0-0.8 Basophil % 0.7 % 0-2 Hematocrit 45 % 42-52 78 Hemoglobin 15.6 g/dL 14.0-18.0 Eosinophil % 2.8 % 0-6 Gran % 47.5 % 38-83 Lymph % 38.5 % 20-45 Mean Corpuscular HGB Cone 35 g/dL 32-36 Mean Corpuscular Hemoglob 38 pg High 27-31 Mean Corpuscular Volume 109 um3 High 80-94 79 Mean Platelet Volume 6.9 um3 Low 7.4-10.4 Mononuclear % 10.5 % High 1-9 Platelet Count 209 CUMM 150-450 Red Cell Count 4.14 CUMM Low 4.6-6.2 Redcell Distribution WDTH 14 % 10.5-15 Comp Metabolic Panel 02/06/2008 [facility] One Over Creatinine 0.[address] [place] [address] [phone] Anion Gap 0 mmol/L Low 2-11 80 Albumin/Globulin Ratio 1.2 1-3 Albumin 3.7 GM/DL 3.2-5.2 Alkaline Phosphatase 66 U/L 39-117 Alt (SGPT) 16 U/L Low 17-63 Ast (Sgot) 23 U/L 12-42 BUN 19 mg/dL 6-24 Calcium 9.0 mg/dL 8.7-10.2 Chloride 107 mmol/L 101-111 Co2 (Carbon Dioxide) 33.0 mmol/L High 22-32 Globulin 3.2 GM/DL 2-4 Glucose 95 mg/dL 70-105 Potassium 4.8 mmol/L 3.5-5.0 Sodium 140 mmol/L 135-145 Bilirubin Total 1.0 mg/dL 0.4-1.5 Total Protein 6.9 GM/DL 6.2-8.1 BUN/Creatinine Ratio 17.3 8-20 Creatinine 1.1 mg/dL 0.5-1.4 Laboratory test 02/06/2008 [facility] PSA Screening 0.49 NG/ML 0-4 [address] [place] [address] [phone] TSH 1.07 MIU/ML 0.34-5.60 Lipid Profile 02/06/2008 [facility] Cholesterol/HDL 4.40 1- 4.97 (Trig/Chol/HDL) [address] [place] [address] [phone] Cholesterol 198 mg/dL Less Than 200 82 Triglyceride 37 mg/dL Low 40-200 High Density Lipoprotein 45 mg/dL 40-60 83 Low Density Lipoprotein 146 mg/dL High Less Than 100 84 1 Because ethnic data is not always readily available, this report includes an eGFR for both -Americans and non- Americans. The National Kidney Disease Education Program (NKDEP) does not endorse the use of the MDRD equation for patients that are not between the ages of 18 and 70, are , have extremes of body size, muscle mass, or nutritional status, or are non- or non-. According to the National Kidney Foundation, irrespective of diagnosis, the stage of the disease is based on the level of kidney function: Stage Description GFR(mL/min/1.73 m(2)) 1 Kidney damage with normal or decreased GFR 90 2 Kidney damage with mild decrease in GFR 60-89 3 Moderate decrease in GFR 30-59 4 Severe decrease in GFR 15-29 5 Kidney failure <15 (or dialysis) 2 Serum levels of PSA measured using the [employer] DXI Hybritech immunoassay should not be interpreted as absolute evidence of the presence or absence of disease. The PSA value should be used in conjunction with other pertinent clinical diagnostic procedures. The values obtained with different assay methods or kits cannot be used interchangeably. 3 FASTING 10 HOUR 4 Desirable: <150 Borderline High: 150-199 High: 200-499 Very High: >500 5 Desirable: <200 Borderline High: 200-239 High: >239 6 Low: <40 Desirable: 40-60 High: >60 7 Desirable: <100 Near Optimal: 100-129 Borderline High: 130-159 High: 160-189 Very High: >189 8 Because ethnic data is not always readily available, this report includes an eGFR for both -Americans and non- Americans. The National Kidney Disease Education Program (NKDEP) does not endorse the use of the MDRD equation for patients that are not between the ages of 18 and 70, are , have extremes of body size, muscle mass, or nutritional status, or are non- or non-. According to the National Kidney Foundation, irrespective of diagnosis, the stage of the disease is based on the level of kidney function: Stage Description GFR(mL/min/1.73 m(2)) 1 Kidney damage with normal or decreased GFR 90 2 Kidney damage with mild decrease in GFR 60-89 3 Moderate decrease in GFR 30-59 4 Severe decrease in GFR 15-29 5 Kidney failure <15 (or dialysis) 9 PT IS FASTING 10 Normal Range 180 to 914 Indeterminate Range 145 to 180 Deficient Range <145 11 Desirable <150 Borderline high 150-199 High 200-499 Very High >500 12 Desirable <200 Borderline high 200-239 High >239 13 Low <40 Desirable: 40-60 High: >60 14 Desirable: <100 mg/dL Near Optimal: 100-129 mg/dL Borderline High: 130-159 mg/dL High: 160-189 mg/dL Very High: >189 mg/dL 15 Because ethnic data is not always readily available, this report includes an eGFR for both -Americans and non- Americans. The National Kidney Disease Education Program (NKDEP) does not endorse the use of the MDRD equation for patients that are not between the ages of 18 and 70, are , have extremes of body size, muscle mass, or nutritional status, or are non- or non-. According to the National Kidney Foundation, irrespective of diagnosis, the stage of the disease is based on the level of kidney function: Stage Description GFR(mL/min/1.73 m(2)) 1 Kidney damage with normal or decreased GFR 90 2 Kidney damage with mild decrease in GFR 60-89 3 Moderate decrease in GFR 30-59 4 Severe decrease in GFR 15-29 5 Kidney failure <15 (or dialysis) 16 Because ethnic data is not always readily available, this report includes an eGFR for both -Americans and non- Americans. The National Kidney Disease Education Program (NKDEP) does not endorse the use of the MDRD equation for patients that are not between the ages of 18 and 70, are , have extremes of body size, muscle mass, or nutritional status, or are non- or non-. According to the National Kidney Foundation, irrespective of diagnosis, the stage of the disease is based on the level of kidney function: Stage Description GFR(mL/min/1.73 m(2)) 1 Kidney damage with normal or decreased GFR 90 2 Kidney damage with mild decrease in GFR 60-89 3 Moderate decrease in GFR 30-59 4 Severe decrease in GFR 15-29 5 Kidney failure <15 (or dialysis) 17 Normal Range 180 to 914 Indeterminate Range 145 to 180 Deficient Range <145 18 RESULT: Polyclonal hypergammaglobulinemia Test Performed by: [place] [address] Stable Manager: Goran Cardona II, M.D., Ph.D. 19 Results suggest response to immunization or prior exposure to the virus. REFERENCE VALUE Vaccinated: Positive (>=1.1 AI) Unvaccinated: Negative (<=0.8 AI) 20 Test Performed by: [facility] [address] [place] [address] Stable Manager: Goran Cardona II, M.D., Ph.D. 21 Desirable <150 Borderline high 150-199 High 200-499 Very High >500 22 Desirable <200 Borderline high 200-239 High >239 23 Low <40 Desirable: 40-60 High: >60 24 Desirable: <100 mg/dL Near Optimal: 100-129 mg/dL Borderline High: 130-159 mg/dL High: 160-189 mg/dL Very High: >189 mg/dL 25 Because ethnic data is not always readily available, this report includes an eGFR for both -Americans and non- Americans. The National Kidney Disease Education Program (NKDEP) does not endorse the use of the MDRD equation for patients that are not between the ages of 18 and 70, are , have extremes of body size, muscle mass, or nutritional status, or are non- or non-. According to the National Kidney Foundation, irrespective of diagnosis, the stage of the disease is based on the level of kidney function: Stage Description GFR(mL/min/1.73 m(2)) 1 Kidney damage with normal or decreased GFR 90 2 Kidney damage with mild decrease in GFR 60-89 3 Moderate decrease in GFR 30-59 4 Severe decrease in GFR 15-29 5 Kidney failure <15 (or dialysis) 26 FASTING 10 HOUR 27 Because ethnic data is not always readily available, this report includes an eGFR for both -Americans and non- Americans. The National Kidney Disease Education Program (NKDEP) does not endorse the use of the MDRD equation for patients that are not between the ages of 18 and 70, are , have extremes of body size, muscle mass, or nutritional status, or are non- or non-. According to the National Kidney Foundation, irrespective of diagnosis, the stage of the disease is based on the level of kidney function: Stage Description GFR(mL/min/1.73 m(2)) 1 Kidney damage with normal or decreased GFR 90 2 Kidney damage with mild decrease in GFR 60-89 3 Moderate decrease in GFR 30-59 4 Severe decrease in GFR 15-29 5 Kidney failure <15 (or dialysis) 28 Desirable <150 Borderline high 150-199 High 200-499 Very High >500 29 Desirable <200 Borderline high 200-239 High >239 30 Low <40 Desirable: 40-60 High: >60 31 Desirable <100 Near Optimal 100-129 Borderline high 130-159 High 160-189 Very High >189 32 RUN DATE: 03/13/14 [facility] LAB LIVE PAGE 1 RUN TIME: [address] [place] [address] Specimen Inquiry Name: SINTIA LEUNG : [address]: Sivakumar Orellana MD Acct: [id number] Unit: [id number] AGE: 73 Location: ENDO Re03/12/14 SEX: M Status: REG REF SPEC: [id number] TIFFANY: 03/12/14- SUBM DR: Sivakumar Orellana MD REQ: [id number] RECD: 03/12/14-1041 STATUS: TINO GUADARRAMA DR: Maxx Benjamin III, MD _ ORDERED: LEVEL IV FINAL DIAGNOSIS Colon, right, biopsy: A. Tubular adenoma. B. No high grade dysplasia or malignancy. CLINICAL HISTORY Routine screening colonoscopy POST-OPERATIVE DIAGNOSIS Screening colonoscopy into cecum, prep good. Small right colon polyp removed , sigmoid diverticulosis. Conclusion: small polyp removed. GROSS DESCRIPTION The specimen is received in formalin labeled Sintia Leung, Biopsy Polyp Right Colon and consists of a 0.3 x 0.2 x 0.2 cm. fortune-pink, polypoid soft tissue fragment. Submitted entirely, one cassette. Signed (signature on file) Neto Riojas MD 1613 END OF REPORT * ML=Testing performed at Main Lab DEPARTMENT OF PATHOLOGY, [address] [place] [address] Neto Riojas M.D. Director [facility] # [id number] 33 Serum levels of PSA measured using the [employer] DXI Hybritech immunoassay should not be interpreted as absolute evidence of the presence or absence of disease. The PSA value should be used in conjunction with other pertinent clinical diagnostic procedures. The values obtained with different assay methods or kits cannot be used interchangeably. 34 Desirable <150 Borderline high 150-199 High 200-499 Very High >500 35 Desirable <200 Borderline high 200-239 High >239 36 Low <40 Desirable: 40-60 High: >60 37 Desirable <100 Near Optimal 100-129 Borderline high 130-159 High 160-189 Very High >189 38 Because ethnic data is not always readily available, this report includes an eGFR for both -Americans and non- Americans. The National Kidney Disease Education Program (NKDEP) does not endorse the use of the MDRD equation for patients that are not between the ages of 18 and 70, are , have extremes of body size, muscle mass, or nutritional status, or are non- or non-. According to the National Kidney Foundation, irrespective of diagnosis, the stage of the disease is based on the level of kidney function: Stage Description GFR(mL/min/1.73 m(2)) 1 Kidney damage with normal or decreased GFR 90 2 Kidney damage with mild decrease in GFR 60-89 3 Moderate decrease in GFR 30-59 4 Severe decrease in GFR 15-29 5 Kidney failure <15 (or dialysis) 39 CHOLESTEROL INTERPRETATION: Desirable: Less than 200 MG/DL Borderline-High Risk: 200-239 MG/DL High-Risk: 240 MG/DL and over 40 HDL INTERPRETATION: Undesirable: High Risk: Less than 40 MG/DL Desirable: Low Risk: Greater than 60 MG/DL 41 LDL INTERPRETATION: Low Risk Optimal Level: LDL Less than 100 MG/DL Near or Above Optimal: LDL 100-129 MG/DL Borderline High Risk: LDL 130-159 MG/DL High Risk: LDL 160-189 MG/DL Very High Risk: LDL Greater than 189 MG/DL 42 * SERUM LEVELS OF PSA MEASURED USING THE [employer] ACCESS HYBRITECH IMMUNOASSAY SHOULD NOT BE INTERPRETED ABSOLUTE EVIDENCE OF THE PRESENCE OR ABSENCE OF DISEASE. THE PSA VALUE SHOULD BE USED IN CONJUNCTION WITH OTHER PERTINENT CLINICAL DIAGNOSTIC PROCEDURES. The values obtained with different assay methods or kits cannot be used interchangeably. 43 Anion gap measurement may be of limited value in the presence of any alkalosis, especially in a combined acid base disorder. . 44 A metabolite of Naproxen, O-desmethylnaproxen, has been shown to interfere with the Jendrassik-Iliamna method for measuring total bilirubin. Samples from patients who have taken Naproxen have shown spurious elevation in total bilirubin levels. 45 Because ethnic data is not always readily available, this report includes an eGFR for both -Americans and non- Americans. The National Kidney Disease Education Program (NKDEP) does not endorse the use of the MDRD equation for patients that are not between the ages of 18 and 70, are , have extremes of body size, muscle mass, or nutritional status, or are non- or non-. According to the National Kidney Foundation, irrespective of diagnosis, the stage of the disease is based on the level of kidney function: Stage Description GFR(mL/min/1.73 m(2)) 1 Kidney damage with normal or decreased GFR 90 2 Kidney damage with mild decrease in GFR 60-89 3 Moderate decrease in GFR 30-59 4 Severe decrease in GFR 15-29 5 Kidney failure <15 (or dialysis) 46 Test Performed by: [facility] [address] [place] [address] Stable Manager: Josué Davila III, M.D. 47 Test Performed by: [facility] [address] [place] [address] Stable Manager: Josué Davila III, M.D. 48 FASTING 49 Anion gap measurement may be of limited value in the presence of any alkalosis, especially in a combined acid base disorder. . 50 A metabolite of Naproxen, O-desmethylnaproxen, has been shown to interfere with the Jendrassik-Iliamna method for measuring total bilirubin. Samples from patients who have taken Naproxen have shown spurious elevation in total bilirubin levels. 51 Because ethnic data is not always readily available, this report includes an eGFR for both -Americans and non- Americans. The National Kidney Disease Education Program (NKDEP) does not endorse the use of the MDRD equation for patients that are not between the ages of 18 and 70, are , have extremes of body size, muscle mass, or nutritional status, or are non- or non-. According to the National Kidney Foundation, irrespective of diagnosis, the stage of the disease is based on the level of kidney function: Stage Description GFR(mL/min/1.73 m(2)) 1 Kidney damage with normal or decreased GFR 90 2 Kidney damage with mild decrease in GFR 60-89 3 Moderate decrease in GFR 30-59 4 Severe decrease in GFR 15-29 5 Kidney failure <15 (or dialysis) 52 CHOLESTEROL INTERPRETATION: Desirable: Less than 200 MG/DL Borderline-High Risk: 200-239 MG/DL High-Risk: 240 MG/DL and over 53 HDL INTERPRETATION: Undesirable: High Risk: Less than 40 MG/DL Desirable: Low Risk: Greater than 60 MG/DL 54 LDL INTERPRETATION: Low Risk Optimal Level: LDL Less than 100 MG/DL Near or Above Optimal: LDL 100-129 MG/DL Borderline High Risk: LDL 130-159 MG/DL High Risk: LDL 160-189 MG/DL Very High Risk: LDL Greater than 189 MG/DL 55 CONSISTENT WITH PREVIOUS RESULTS 56 2+ Macrocytosis 57 * SERUM LEVELS OF PSA MEASURED USING THE [employer] ACCESS HYBRITECH IMMUNOASSAY SHOULD NOT BE INTERPRETED ABSOLUTE EVIDENCE OF THE PRESENCE OR ABSENCE OF DISEASE. THE PSA VALUE SHOULD BE USED IN CONJUNCTION WITH OTHER PERTINENT CLINICAL DIAGNOSTIC PROCEDURES. 58 Anion gap measurement may be of limited value in the presence of any alkalosis, especially in a combined acid base disorder. . 59 Note change in reference range as of 05/31/08. The change was based on recommendations from the [place] [employer]. 60 Please note change in reference range effective 08 . 61 A metabolite of Naproxen, O-desmethylnaproxen, has been shown to interfere with the Jendrassik-Iliamna method for measuring total bilirubin. Samples from patients who have taken Naproxen have shown spurious elevation in total bilirubin levels. 62 Because ethnic data is not always readily available, this report includes an eGFR for both -Americans and non- Americans. The National Kidney Disease Education Program (NKDEP) does not endorse the use of the MDRD equation for patients that are not between the ages of 18 and 70, are , have extremes of body size, muscle mass, or nutritional status, or are non- or non-. According to the National Kidney Foundation, irrespective of diagnosis, the stage of the disease is based on the level of kidney function: Stage Description GFR(mL/min/1.73 m(2)) 1 Kidney damage with normal or decreased GFR 90 2 Kidney damage with mild decrease in GFR 60-89 3 Moderate decrease in GFR 30-59 4 Severe decrease in GFR 15-29 5 Kidney failure <15 (or dialysis) 63 CHOLESTEROL INTERPRETATION: Desirable: Less than 200 MG/DL Borderline-High Risk: 200-239 MG/DL High-Risk: 240 MG/DL and over 64 HDL INTERPRETATION: Undesirable: High Risk: Less than 40 MG/DL Desirable: Low Risk: Greater than 60 MG/DL 65 LDL INTERPRETATION: Low Risk Optimal Level: LDL Less than 100 MG/DL Near or Above Optimal: LDL 100-129 MG/DL Borderline High Risk: LDL 130-159 MG/DL High Risk: LDL 160-189 MG/DL Very High Risk: LDL Greater than 189 MG/DL 66 CONSISTENT WITH PREVIOUS RESULTS 67 2+ Macrocytosis 68 CONSISTENT WITH PREVIOUS RESULTS 69 2+ Macrocytosis 70 Anion gap measurement may be of limited value in the presence of any alkalosis, especially in a combined acid base disorder. . 71 Note change in reference range as of 05/31/08. The change was based on recommendations from the [place] [employer]. 72 Please note change in reference range effective 08 . 73 A metabolite of Naproxen, O-desmethylnaproxen, has been shown to interfere with the Jendrassik-Iliamna method for measuring total bilirubin. Samples from patients who have taken Naproxen have shown spurious elevation in total bilirubin levels. 74 CHOLESTEROL INTERPRETATION: Desirable: Less than 200 MG/DL Borderline-High Risk: 200-239 MG/DL High-Risk: 240 MG/DL and over 75 HDL INTERPRETATION: Undesirable: High Risk: Less than 40 MG/DL Desirable: Low Risk: Greater than 60 MG/DL 76 LDL INTERPRETATION: Low Risk Optimal Level: LDL Less than 100 MG/DL Near or Above Optimal: LDL 100-129 MG/DL Borderline High Risk: LDL 130-159 MG/DL High Risk: LDL 160-189 MG/DL Very High Risk: LDL Greater than 189 MG/DL 77 * SERUM LEVELS OF PSA MEASURED USING THE [employer] ACCESS HYBRITECH IMMUNOASSAY SHOULD NOT BE INTERPRETED ABSOLUTE EVIDENCE OF THE PRESENCE OR ABSENCE OF DISEASE. THE PSA VALUE SHOULD BE USED IN CONJUNCTION WITH OTHER PERTINENT CLINICAL DIAGNOSTIC PROCEDURES. 78 1+ Macrocytosis 79 CONSISTENT WITH PREVIOUS RESULTS 80 Anion gap measurement may be of limited value in the presence of any alkalosis, especially in a combined acid base disorder. . 81 * SERUM LEVELS OF PSA MEASURED USING THE [employer] ACCESS HYBRITECH IMMUNOASSAY SHOULD NOT BE INTERPRETED ABSOLUTE EVIDENCE OF THE PRESENCE OR ABSENCE OF DISEASE. THE PSA VALUE SHOULD BE USED IN CONJUNCTION WITH OTHER PERTINENT CLINICAL DIAGNOSTIC PROCEDURES. A PSA value in the range of 0.1 to 0.6 ng/ml is indeterminate if being used as an indicator of recurrent or residual disease. . 82 CHOLESTEROL INTERPRETATION: Desirable: Less than 200 MG/DL Borderline-High Risk: 200-239 MG/DL High-Risk: 240 MG/DL and over 83 HDL INTERPRETATION: Undesirable: High Risk: Less than 40 MG/DL Desirable: Low Risk: Greater than 60 MG/DL 84 LDL INTERPRETATION: Low Risk Optimal Level: LDL Less than 100 MG/DL Near or Above Optimal: LDL 100-129 MG/DL Borderline High Risk: LDL 130-159 MG/DL High Risk: LDL 160-189 MG/DL Very High Risk: LDL Greater than 189 MG/DL Procedures Date Code Description Status 04/10/2019 45529 EKG Tracing & Interpretation Completed 03/28/2019 47448895 Colonoscopy Completed 02/17/2019 68358 EKG Tracing & Interpretation Completed 03/09/2018 19346 EKG Tracing & Interpretation Completed 10/07/2016 39160 Cardiac Event Monitor Completed 09/18/2016 77772 ECHO Stress Test Incl Perf Contiuous ekg Monitoring Completed W/Phys Superv 09/03/2016 84684 Mobile Cardiovascular Telemetry Over 24 HR Up To 30 Completed Days 08/27/2016 70653 EKG Tracing & Interpretation Completed 08/24/2016 66710 EKG Tracing & Interpretation Completed 08/04/2016 88143 EKG Tracing & Interpretation Completed 08/03/2016 01459 ECHO Transthoracic, Real-Time 2D With Doppler And Color Completed Flow 07/31/2016 52557 EKG Tracing & Interpretation Completed 07/28/2016 49315 EKG Tracing & Interpretation Completed 03/12/2014 26685645 Colonoscopy Completed 11/11/2012 92145 Rad Exam; Ankle Comp Completed 02/28/2009 07467 EKG Tracing & Interpretation Completed 10/30/2003 47205722 Colonoscopy Completed Encounters Type Date Location Provider Dx Diagnosis Office Visit 02/17/2019 [facility] Loren Z01.818 Encounter for other 2:00p Narda Bruce M.D. preprocedural examination H26.9 Unspecified cataract Z86.010 Personal history of colonic polyps I48.0 Paroxysmal atrial fibrillation Office Visit 09/27/2018 [facility] Dylan Moreau.171 Post-traumatic 8:30a Services Of Sirisha Corey osteoarthritis, C.M.A. right ankle and foot Office Visit 05/19/2018 [facility] Loren Z00.00 Encntr for general 9:20a Narda Bruce M.D. 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 I48.0 Paroxysmal atrial 2:40p Cardiology Of Ramon, DO FAC fibrillation [facility] Office Visit 09/21/2017 Orthopedic Lizzeth Young.171 Post-traumatic 9:00a Services Cindy Grimm osteoarthritis, C.M.A. right ankle and foot Office Visit 05/18/2017 [facility] Loren Z00.00 Encntr for general 9:20a Medicine U[place]ano Bruce M.D. adult medical exam w/o abnormal findings M72.2 Plantar fascial fibromatosis E78.2 Mixed hyperlipidemia D22.9 Melanocytic nevi, unspecified N40.1 Benign prostatic hyperplasia with lower urinary tract symp Office Visit 05/03/2017 2:40p [place] [facility] Ezekiel S. I48.0 Paroxysmal atrial Of [facility] Ramon, DO fibrillation FACC Office Visit 10/15/2016 8:40a [place] [facility] Ezekiel S. I48.0 Paroxysmal atrial Of Phuong Stanleyno, DO fibrillation FACC Office Visit 08/27/2016 9:45a [place] [facility] Ezekiel S. I48.0 Paroxysmal atrial Of Ph[place] Ramon, DO fibrillation FACC I42.9 Cardiomyopathy, unspecified I48.3 Typical atrial flutter Office Visit 08/24/2016 3:40p [place] [facility] Ezekiel S. I48.91 Unspecified atrial Of Phuong Stanleyno, DO fibrillation FACC I48.3 Typical atrial flutter Office Visit 08/13/2016 Orthopedic Dylan M19.171 Post-traumatic 11:00a Services Of Sirisha Corey osteoarthritis, C.M.A. right ankle and foot Office Visit 08/04/2016 [place] Ezekiel S. I48.3 Typical atrial 12:45p Cardiology Of Tristen DO flutter [facility] FACC I42.9 Cardiomyopathy, unspecified Office Visit 07/31/2016 1:00p [place] [facility] Ezekiel S. Ramon, I48.3 Typical atrial Of Phuong DO FACC flutter Office Visit 07/28/2016 4:40p [facility] Loren R55 Syncope and Medicine - Virginie Bruce M.D. 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 enlarged lymph nodes Z23 Encounter for immunization Office Visit 12/03/2015 2:40p [facility] Loren Z00.00 Encntr for Medicine - Virginie Bruce M.D. general adult medical exam w/o abnormal findings R59.0 Localized enlarged lymph nodes Office Visit 04/04/2015 11:00a [facility] Shin Contreras, PLAN CHECKER 719.47 [facility] 692.6 Dermatitis Contact Due To Plants (Except Food) 911.4 Injury Superficial Insect Bite Trunk Nonvenomous W/O Infect 913.4 Injury Superficial Insect Bite Elbow Forearm Wrist W/O Infec Office Visit 11/20/2014 3:00p [facility] Maxx Chapa V70.0 [facility] 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 Unspec Office Visit 12/16/2012 [facility] [place] 726.71 Bursitis Or 8:15a Services Of Sirisha Tendinilarry C.M.A. Achilles Office Visit 11/11/2012 Orthopedic Randell Chappell 726.71 Bursitis Or 9:30a Services Of CHUY Zavala Tendinitis C.M.A. Achilles Office Visit 05/30/2012 [facility] Maxx Chapa V70.0 Examination 2:00p Narda Benjamin M.D. 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 V70.0 Examination AT León Benjamin M.D. 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 272.0 Hypercholesterolemia Pure 10:20a AT León Benjamin M.D. 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 Office Visit 10/15/2009 3:40p DO Not Use Hospice Nurse Practitioner Maxx EJessica 724.2 Lumbago AT [facility] Sirisha Benjamin Office Visit 02/28/2009 1:30p [facility] Maxx Chapa V72.31 Routine Vessel Manager Assoc AT Sirisha Benjamin [facility] 272.0 Hypercholesterolemia Pure Office Visit 02/13/2008 9:30a [facility] Maxx Chapa V70.0 Examination Assoc AT Sirisha Benjamin [facility] Routine AT Health Care Facility V03.82 Streptococcus Pneumoniae Vaccination Spec Other Plan of Treatment Future Appointment(s):04/17/2019 10:00 am - Traveling ECHO 2 at [place] [facility]05/22/2019 9:20 am - Loren Bruce M.D. at [facility] Internal Medicine - [facility]cmob04/10/2019 - Ezekiel Ramon DO FACCI48.0 Paroxysmal atrial fibrillationFollow up:1 yearR01.1 Cardiac murmur, unspecifiedNew Orders: Echocardiogram, Ordered: 04/10/19
[2019-04-13 18:40] VITALS: BP 130/71
--- NOTE | 2019-04-13 18:56 | UC ---
Skin Complaint HPI - HPI Summary HPI Summary: Noticed a tick on his R upper thigh an hour ago and he removed it without issue. Denies rash, joint pain, fever. Has had other tick bites before with no symptoms. He reports being here b/c his was worried. - History of Current Complaint Chief Complaint: UCSkin Time Seen by Provider: 04/13/19 18:38 Stated Complaint: TICK Hx Obtained From: Patient Pain Intensity: 0 Aggravating Factor(s): Nothing Alleviating Factor(s): Nothing - Allergy/Home Medications Allergies/Adverse Reactions: Allergies Allergy/AdvReac Type Severity Reaction Status Date / Time No Known Allergies Allergy Verified 04/13/19 18:41 PMH/Surg Hx/FS Hx/Imm Hx Cardiovascular History: Hypertension, Atrial Fibrillation - Surgical History Surgical History: Yes Surgery Procedure, Year, and Place: ureter had a kink in it and it was straightened. - Family History Known Family History: Positive: None - Social History Alcohol Use: Daily Alcohol Amount: beer at dinner Substance Use Type: None Smoking Status (MU): Former Smoker When Did the Patient Quit Smoking/Using Tobacco: quit at 27 years old Review of Systems All Other Systems Reviewed And Are Negative: Yes Constitutional: Negative: Fever, Chills Skin: Positive: Other - tick bites R upper thigh. Negative: Rash Respiratory: Positive: Negative Cardiovascular: Positive: Negative Musculoskeletal: Negative: Arthralgia Physical Exam Triage Information Reviewed: Yes Appearance: Well-Appearing Vital Signs: Initial Vital Signs Temp 99.0 F 04/13/19 18:33 Pulse 69 04/13/19 18:33 Resp 16 04/13/19 18:33 BP 130/71 04/13/19 18:33 Pulse Ox 95 04/13/19 18:33 Vital Signs Reviewed: Yes Musculoskeletal: Positive: No Edema - at knees Neurological: Positive: Alert, Other: - normal speech Skin: Positive: Other - tick bite irritation at R upper thigh. No signs of bull 's eye rash. Course/Dx - Course Course Of Treatment: Tick bite and self removal at R upper thigh w/ no complication. No s/sx. Plan is to send prophylaxis for him to bead picker should he need it. we reviewed cdc recommendations as well as local infectious disease doc recs. Discussed tick bite prevention. - Differential Diagnoses - Skin Complaint Differential Diagnoses: Foreign Body, Tick Born Illness - Diagnoses Provider Diagnosis: Tick bite Discharge - Sign-Out/Discharge Documenting (check all that apply): Patient Departure All imaging exams completed and their final reports reviewed: No Studies - Discharge Plan Condition: Good Disposition: HOME Prescriptions: DOXYcycline CAP(*) [DOXYcycline 100MG CAP(*)] 100 mg PO ONCE 1 Days #2 cap Patient Education Materials: Tick Bite (ED) Referrals: Loren Bruce MD [Primary Care Provider] - Additional Instructions: If you develop fever, joint pain/swelling or rash please follow up with your primary care. - Billing Disposition and Condition Condition: GOOD Disposition: Home
== END 2019-04-13 19:00 | disposition home or self-care (01) ==
LOC: UCEAST 18:23
DX: T63.481A Toxic effect of venom of other arthropod, accidental (unintentional), initial encounter (principal); Y92.9 Unspecified place or not applicable; I10 Essential (primary) hypertension; I48.91 Unspecified atrial fibrillation; Z87.891 Personal history of nicotine dependence
CPT/HCPCS: 99212; G0463

== ENCOUNTER 2019-05-03 14:11 | Emergency (ER) | payer OTHER ==
[2019-05-03 15:00] VITALS: BP 128/65
== END 2019-05-03 15:58 | disposition left against medical advice (07) ==
LOC: UCEAST 14:11
DX: Z53.8 Procedure and treatment not carried out for other reasons (principal)

== ENCOUNTER 2019-10-21 10:24 | Emergency (ER) | payer OTHER ==
[2019-10-21 10:33] VITALS: BP 123/60
--- NOTE | 2019-10-21 10:46 | UC ---
Elbow Pain - HPI Summary HPI Summary: noticed L elbow swelling 2 days ago, cannot recall injury or skin break. swelling has not increased since it began, very little pain, no fever. Does take blood thinner for A-fib - History of Current Complaint Chief Complaint: UCSkin Stated Complaint: ELBOW COMPLAINT Time Seen by Provider: 10/21/19 10:30 Hx Obtained From: Patient Onset/Duration: Days - 2 Severity Currently: None Pain Intensity: 0 Aggravating Factor(s): Nothing Alleviating Factor(s): Nothing Associated Signs And Symptoms: Positive: Swelling. Negative: Fever, Weakness, Numbness/Tingling - Allergies/Home Medications Allergies/Adverse Reactions: Allergies Allergy/AdvReac Type Severity Reaction Status Date / Time No Known Allergies Allergy Verified 10/21/19 10:27 Home Medications: Home Medications Cyanocobalamin TAB* [Vitamin B12 TAB*] 500 mcg PO DAILY 10/21/19 [History Confirmed 10/21/19] PMH/Surg Hx/FS Hx/Imm Hx Previously Healthy: Yes Cardiovascular History: Hypertension, Atrial Fibrillation - Surgical History Surgical History: Yes Surgery Procedure, Year, and Place: ureter had a kink in it and it was straightened - 1979 - Family History Known Family History: Positive: None - Social History Occupation: Employed Full-time - [employer] Lives: With Family Alcohol Use: Daily Alcohol Amount: beer at dinner Substance Use Type: None Smoking Status (MU): Former Smoker Length of Time of Smoking/Using Tobacco: 8 years When Did the Patient Quit Smoking/Using Tobacco: quit at 27 years old Review of Systems All Other Systems Reviewed And Are Negative: Yes Constitutional: Positive: Negative. Negative: Fever, Chills Respiratory: Positive: Negative Cardiovascular: Negative: Chest Pain Musculoskeletal: Positive: Other: - swollen L elbow. Negative: Decreased ROM Neurological: Positive: Negative. Negative: Headache Psychological: Positive: Negative Is Patient Immunocompromised?: No Physical Exam Triage Information Reviewed: Yes Appearance: Well-Appearing, No Pain Distress, Well-Nourished Vital Signs: Initial Vital Signs Temp 98.4 F 10/21/19 10:27 Pulse 78 10/21/19 10:27 Resp 16 10/21/19 10:27 BP 123/60 10/21/19 10:27 Pulse Ox 98 10/21/19 10:27 Vital Signs Reviewed: Yes Respiratory Exam: Normal Respiratory: Positive: Lungs clear Cardiovascular Exam: Normal Musculoskeletal: Positive: Strength Intact, ROM Intact Neurological Exam: Normal Neurological: Positive: Alert Psychological Exam: Normal Skin Exam: Other - erythema and small raised area within swollen area - no pustule Elbow Pain Course/Dx - Differential Dx/Diagnosis Differential Diagnosis/HQI/PQRI: Bursitis, Cellulitis, Foreign Body, Fracture ( Closed), Infection Provider Diagnosis: Bursitis of left elbow Discharge ED - Sign-Out/Discharge Documenting (check all that apply): Patient Departure All imaging exams completed and their final reports reviewed: No Studies - Discharge Plan Condition: Good Disposition: HOME Prescriptions: Cephalexin CAP* [Keflex 500 CAP*] 500 mg PO TID #21 cap Patient Education Materials: Elbow Bursitis (ED) Referrals: Loren Bruce MD [Primary Care Provider] - Dylan Shah MD [Medical Doctor] - 2 Days (if not improving) Additional Instructions: Protect elbow from injury - do not put pressure on elbow Take antibiotic as prescribed you can also apply warm packs to elbow - Billing Disposition and Condition Condition: GOOD Disposition: Home
== END 2019-10-21 11:03 | disposition home or self-care (01) ==
LOC: UCEAST 10:24
DX: M71.522 Other bursitis, not elsewhere classified, left elbow (principal); I10 Essential (primary) hypertension; Z87.891 Personal history of nicotine dependence
CPT/HCPCS: 99212; G0463

== ENCOUNTER 2023-04-19 07:58 | Inpatient (IN) ==
[2023-04-19] MEDS ORDERED: Lactated Ringers 1000 ml BAG 1,000 ML IV ONE (08:07)
[2023-04-19 08:44] LABS: ABS Lymphocytes 0.7 10^3/uL (1.0-4.8); ABS Monocytes 0.6 10^3/uL (0.0-1.1); ABS Neutrophils 4.8 10^3/uL (1.5-7.6); ABS Nucleated RBC 0.01 10^3/ul; Eosinophil % 0.1 %; Hematocrit 44.4 % (38-53); Hemoglobin 15.7 g/dL (13.2-16.3); Lymphocyte % 11.1 %; Mean Corpuscular Hemoglobin 38.6 pg (27-33); Mean Corpuscular Hgb Conc 35.3 g/dL (31-36); Mean Corpuscular Volume 109.4 fL (80-97); Mean Platelet Volume 6.6 fL (7.5-11.2); Nucleated Red Blood Cells % 0.1 /100 WBC (0.0-0.4); Platelet Count 117 10^3/uL (150-450); Red Blood Count 4.06 10^6/uL (4.06-5.63); Red Cell Distribution Width 12.8 % (12-17); White Blood Count 6.2 10^3/uL (3.6-10.2)
[2023-04-19 08:52] LABS: Activated Partial Thrombo Time 35.5 seconds (26.0-38.0); INR 1.78 (0.88-1.18)
[2023-04-19 09:07] LABS: High Sens Troponin Baseline 17 pg/mL (<20)
[2023-04-19 09:17] LABS: ALT 11 U/L (7-52); Albumin 4.1 g/dL (3.2-5.2); Albumin/Globulin Ratio 1.3 (1-3); Alkaline Phosphatase 60 U/L (35-149); Blood Urea Nitrogen 15 mg/dL (6-24); C Reactive Protein 10.98 mg/L (<8.01); CO2 Carbon Dioxide 22 mmol/L (22-32); Calcium 8.8 mg/dL (8.6-10.3); Chloride 96 mmol/L (101-111); Creatinine, Serum 0.93 mg/dL (0.67-1.17); Globulin 3.1 g/dL (2-4); Glucose 112 mg/dL (70-100); Sodium 130 mmol/L (135-145); Total Protein 7.2 g/dL (6.4-8.9)
[2023-04-19 09:27] LABS: Anion Gap 12 mmol/L (2-16)
[2023-04-19] MEDS ORDERED: DOXYcycline 100 MG in NS 0.9% 250 ml 250 ML IVPB ONE (10:04)
[2023-04-19 10:23] LABS: High Sensitivity Troponin 1 Hr 19 pg/mL (<20)
[2023-04-19 12:29] LABS: Urine Appearance Clear; Urine Bilirubin Negative (Negative); Urine Blood 2+ (Negative); Urine Color Yellow; Urine Glucose Negative (Negative); Urine Ketones 1+ (Negative); Urine Nitrite Negative (Negative); Urine Protein 1+(30 mg/dL) (Negative); Urine Specific Gravity 1.016 (1.002-1.030); Urine Urobilinogen Negative (Negative)
[2023-04-19 12:32] LABS: Urine Bacteria Absent (Absent); Urine Red Blood Cell 2+(6-10/hpf) (Absent); Urine Squamous Epithelial Cell Present (Absent); Urine White Blood Cell Trace(0-5/hpf) (Absent)
[2023-04-19 13:11] LABS: Potassium, Whole Blood 3.7 mmol/L (3.4-4.5)
[2023-04-19 15:14] LABS: TSH Ultra Thyroid Stim Horm 0.41 mcIU/mL (0.34-5.60)
[2023-04-19 15:24] LABS: Folate 14.34 ng/mL (5.90-24.80)
[2023-04-19] MEDS ORDERED: Acetaminophen IV 1 GM/100ML 1,000 MG/100 ML BAG IV PRN (18:43)
[2023-04-19] MEDS ORDERED: Lactated Ringers 1000 ml BAG 500 ML IV ONE (21:46)
[2023-04-19] MEDS ORDERED: guaiFENesin 100 mg/5 ml LIQ unit dose cup PO PRN (21:47)
[2023-04-19] MEDS: DOXYcycline 100 MG in NS 0.9% 250 ml 250 ML IVPB SCH (22:35)
[2023-04-20 06:10] LABS: Albumin 3.3 g/dL (3.2-5.2); Albumin/Globulin Ratio 1.1 (1-3); Creatinine, Serum 0.83 mg/dL (0.67-1.17); Globulin 2.9 g/dL (2-4); Magnesium 1.8 mg/dL (1.9-2.7); Potassium 3.6 mmol/L (3.5-5.0); Total Protein 6.2 g/dL (6.4-8.9); eGFR CKD-EPI 88.5 (>60)
[2023-04-20 06:49] LABS: Hematocrit 40.7 % (38-53); Hemoglobin 14.4 g/dL (13.2-16.3); Mean Corpuscular Hemoglobin 39.1 pg (27-33); Mean Corpuscular Hgb Conc 35.3 g/dL (31-36); Mean Corpuscular Volume 110.9 fL (80-97); Red Blood Count 3.67 10^6/uL (4.06-5.63); Red Cell Distribution Width 13.1 % (12-17); White Blood Count 5.2 10^3/uL (3.6-10.2)
[2023-04-20 07:08] LABS: Macrocytosis 2+
[2023-04-20 07:09] LABS: ABS Lymphocytes 0.7 10^3/uL (1.0-4.8); ABS Monocytes 0.2 10^3/uL (0.0-1.1); ABS Neutrophils 4.3 10^3/uL (1.5-7.6); Lymphocyte % 12.6 %; Mean Platelet Volume 6.8 fL (7.5-11.2); Nucleated Red Blood Cells % 0.1 /100 WBC (0.0-0.4); Platelet Count 98 10^3/uL (150-450)
[2023-04-20] MEDS ORDERED: Magnesium Sulfate 2 gm BAG 2 GM/50 ML BAG IVPB ONE (07:55)
[2023-04-20] MEDS: DOXYcycline 100 MG in NS 0.9% 250 ml 250 ML IVPB SCH ×2 (08:45→20:41)
[2023-04-20 10:06] LABS: C Reactive Protein 123.79 mg/L (<8.01)
[2023-04-20] MEDS: cefTRIAXone 1 gm/50 mL D5W 1 GM/50 ML BAG IV SCH (10:49)
[2023-04-20 10:58] LABS: Erythrocyte Sed Rate 38 mm/Hr (0-19)
[2023-04-21 06:38] LABS: ABS Eosinophils 0.1 10^3/uL (0.0-0.5); ABS Lymphocytes 1.3 10^3/uL (1.0-4.8); ABS Monocytes 0.6 10^3/uL (0.0-1.1); ABS Neutrophils 3.7 10^3/uL (1.5-7.6); ABS Nucleated RBC 0.01 10^3/ul; Eosinophil % 0.9 %; Hematocrit 39.1 % (38-53); Hemoglobin 13.6 g/dL (13.2-16.3); Lymphocyte % 23.2 %; Mean Corpuscular Hemoglobin 38.8 pg (27-33); Mean Corpuscular Hgb Conc 34.9 g/dL (31-36); Mean Corpuscular Volume 111.2 fL (80-97); Nucleated Red Blood Cells % 0.1 /100 WBC (0.0-0.4); Platelet Count 96 10^3/uL (150-450); Red Blood Count 3.51 10^6/uL (4.06-5.63); White Blood Count 5.7 10^3/uL (3.6-10.2)
[2023-04-21 06:59] LABS: Calcium 8.2 mg/dL (8.6-10.3); Creatinine, Serum 0.9 mg/dL (0.67-1.17); Magnesium 2.3 mg/dL (1.9-2.7); Potassium 3.7 mmol/L (3.5-5.0); eGFR CKD-EPI 86.3 (>60)
[2023-04-21] MEDS ORDERED: Lactated Ringers 1000 ml BAG 1,000 ML IV ONE (08:00)
[2023-04-21] MEDS: cefTRIAXone 1 gm/50 mL D5W 1 GM/50 ML BAG IV SCH (10:29)
[2023-04-21] MEDS: DOXYcycline 100 MG in NS 0.9% 250 ml 250 ML IVPB SCH (11:20)
[2023-04-21 17:08] VITALS: BP 99/57
[2023-04-23 16:56] LABS: Anaplasma phagocytophilum Negative (Negative); B. miyamotoi PCR, B Negative (Negative); Babesia divergens/MO-1 Negative (Negative); Babesia ducani Negative (Negative); Ehrlichia chaffeensis Negative (Negative); Ehrlichia ewingii/canis Negative (Negative); Ehrlichia muris eauclairensis Negative (Negative)
== END 2023-04-21 19:00 | disposition home or self-care (01) | DRG 72 ==
LOC: ED 07:58 → EDHOLD 07:58 → SUATTDRO 10:14 → INTOOBSV 10:14 → OBSVTOIN 10:14 → EDHOLD 15:42 → MED 16:10
PROVIDERS: ADMIT Internal Medicine; ATTEND Hospitalist

== ENCOUNTER 2024-09-27 12:30 | Observation (INO) ==
[2024-09-27 13:03] LABS: Hematocrit 43.4 % (38-53); Hemoglobin 15.5 g/dL (13.2-16.3); INR 1.86 (0.85-1.14); Mean Corpuscular Hemoglobin 39.7 pg (27-33); Mean Corpuscular Hgb Conc 35.8 g/dL (31-36); Mean Platelet Volume 6.5 fL (7.5-11.2); Platelet Count 191 10^3/uL (150-450); Red Blood Count 3.91 10^6/uL (4.06-5.63); Red Cell Distribution Width 13.3 % (12-17); White Blood Count 7.1 10^3/uL (3.6-10.2)
[2024-09-27 13:29] LABS: ABS Basophils 0.1 10^3/uL (0.0-0.1); ABS Eosinophils 0.1 10^3/uL (0.0-0.5); ABS Lymphocytes 2.3 10^3/uL (1.0-4.8); ABS Monocytes 0.8 10^3/uL (0.0-1.1); ABS Neutrophils 3.8 10^3/uL (1.5-7.6); Lymphocyte % 32.7 %
[2024-09-27] MEDS: Ondansetron 4 mg VIAL 2 MG/ML 2 ml VIAL IV ONE (13:30)
[2024-09-27] MEDS: Lactated Ringers 1000 ml BAG 1,000 ML IV ONE (13:32)
[2024-09-27 13:42] LABS: Albumin 4.1 g/dL (3.5-5.7); Albumin/Globulin Ratio 1.3 (1-3); Calcium 9.2 mg/dL (8.6-10.3); Creatinine, Serum 0.93 mg/dL (0.67-1.17); Globulin 3.1 g/dL (2-4); Potassium 3.9 mmol/L (3.5-5.0); Total Bilirubin 0.8 mg/dL (0.2-1.0); Total Protein 7.2 g/dL (6.4-8.9); eGFR CKD-EPI 82.5 (>60)
[2024-09-27 14:50] LABS: High Sensitivity Troponin 1 Hr 3 pg/mL (<20)
[2024-09-27] MEDS: Iohexol 350 (CONTRAST) 500 ML MDV IV ONE (15:22)
[2024-09-27] MEDS ORDERED: Ondansetron 4 mg VIAL 2 MG/ML 2 ml VIAL IV PRN (20:04)
[2024-09-27 21:45] LABS: Urine Appearance Clear; Urine Bacteria Absent /HPF (Absent); Urine Bilirubin Negative (Negative); Urine Blood Negative (Negative); Urine Color Light-Yellow; Urine Glucose Negative (Negative); Urine Ketones 1+ (Negative); Urine Nitrite Negative (Negative); Urine Protein Trace (Negative); Urine Red Blood Cell Trace(0-2/hpf) /HPF (0-Trace); Urine Specific Gravity >1.050 (1.002-1.030); Urine Urobilinogen Negative (Negative); Urine White Blood Cell Trace(0-5/hpf) /HPF (0-Trace); Urine pH 6.5 (5.0-8.0)
[2024-09-28 07:43] LABS: ABS Eosinophils 0.1 10^3/uL (0.0-0.5); ABS Lymphocytes 1.7 10^3/uL (1.0-4.8); ABS Monocytes 0.8 10^3/uL (0.0-1.1); ABS Neutrophils 4.5 10^3/uL (1.5-7.6); Eosinophil % 1.6 %; Hematocrit 40.5 % (38-53); Hemoglobin 14.3 g/dL (13.2-16.3); Lymphocyte % 24.1 %; Mean Corpuscular Hemoglobin 39.6 pg (27-33); Mean Corpuscular Hgb Conc 35.4 g/dL (31-36); Mean Corpuscular Volume 111.9 fL (80-97); Mean Platelet Volume 6.2 fL (7.5-11.2); Nucleated Red Blood Cells % 0.1 %/100WBC (0.0-0.8); Platelet Count 169 10^3/uL (150-450); Red Blood Count 3.62 10^6/uL (4.06-5.63); Red Cell Distribution Width 13.3 % (12-17); White Blood Count 7.2 10^3/uL (3.6-10.2)
[2024-09-28 08:01] LABS: Calcium 8.5 mg/dL (8.6-10.3); Creatinine, Serum 0.91 mg/dL (0.67-1.17); HDL Cholesterol 33.2 mg/dL; Potassium 3.8 mmol/L (3.5-5.0); eGFR CKD-EPI 84.7 (>60)
[2024-09-28 08:15] LABS: TSH Ultra Thyroid Stim Horm 0.66 mcIU/mL (0.34-5.60)
[2024-09-28 08:27] LABS: Folate 10.74 ng/mL (5.90-24.80)
[2024-09-28 09:19] VITALS: BP 104/52
[2024-09-28] MEDS ORDERED: CMC:Alfuzosin ER 10 mg TAB.ER (NF) 10 MG TAB.ER PO SCH (21:00)
== END 2024-09-28 14:45 | disposition home or self-care (01) ==
LOC: EDHOLD 12:30 → ED 12:30 → SUATTDRO 18:33 → MEDTELE 21:28
PROVIDERS: ADMIT Hospitalist; ATTEND Internal Medicine